=== PATIENT | male | born 1985 | race Caucasian/White ===

== ENCOUNTER 2017-08-10 12:27 | Emergency (ER) | payer MEDICARE, MEDICAID ==
[~2017-08-10] VITALS: Ht 180.3 cm; Wt 90.7 kg
[2017-08-10] MEDS ORDERED: CYCL5TAB PO (12:49)
[2017-08-10] MEDS ORDERED: NAPR500T PO (12:49)
--- NOTE | 2017-08-10 12:50 | ED General ---
General Chief Complaint: General Problems/Pain Stated Complaint: RIGHT SHOULDER/LOWER BACK/LEFT ARM PAIN Nursing Triage Note: patient reports R shoulder pain for months, patient reports having surgery on rotator cuff in [place] but denies contacting surgeon regarding pain. patient also reports he has been out of his pain medication for a month Nursing Sepsis Screen: No Definite Risk Source of Information: Patient Exam Limitations: No Limitations History of Present Illness Time Seen by Provider: 12:47 Initial Comments To ER with right shoulder pain for the past week. He had rotator cuff repair to his right shoulder several months ago in [place]. He has not contacted his surgeon to request additional pain medication. He has low back pain since this morning and he believes he twisted wrong. He has left elbow pain chronic. States he's been out of his pain medication for quite a while and insists that he is in severe pain and can't sleep. Just moved here from [place]. Timing/Duration: 1-2 Days Severity: Moderate Allergies and Home Medications Allergies Coded Allergies: No Known Drug Allergies (Unverified , 08/10/17) Home Medications No Active Prescriptions or Reported Meds Constitutional: see HPI EENTM: see HPI Respiratory: no symptoms reported Cardiovascular: no symptoms reported Genitourinary: no symptoms reported Musculoskeletal: see HPI Skin: no symptoms reported Psychiatric/Neurological: No Symptoms Reported Hematologic/Lymphatic: No Symptoms Reported Past Prejuwt-Grxwus-Owsbha Hx Patient Social History Alcohol Use: Occasionally Uses Recreational Drug Use: No Smoking Status: Current Everyday Smoker Type Used: Cigarettes Recent Foreign Travel: No Contact w/Someone Who Travel: No Recent Infectious Disease Expo: No Physical Abuse: No Sexual Abuse: No Surgeries History of Surgeries: Yes Surgeries: Orthopedic Respiratory History of Respiratory Disorde: No Cardiovascular History of Cardiac Disorders: No Neurological History of Neurological Disord: No Genitourinary History of Genitourinary Disor: No Gastrointestinal History of Gastrointestinal Di: No Musculoskeletal History of Musculoskeletal Dis: Yes Musculoskeletal Disorders: Chronic Back Pain Endocrine History of Endocrine Disorders: No HEENT History of HEENT Disorders: No Cancer History of Cancer: No Psychosocial Suicide Risk Score: 0 Integumentary History of Skin or Integumenta: No Physical Exam Vital Signs Vital Sign - Last 12Hours 08/10/17 12:38 Temp 98.2 Pulse 107 Resp 18 B/P (MAP) 136/88 Pulse Ox 99 Capillary Refill : Less Than 3 Seconds General Appearance: No Apparent Distress, WD/WN Eyes: Bilateral Eye Normal Inspection, Bilateral Eye PERRL HEENT: PERRL/EOMI, TMs Normal Neck: Full Range of Motion, Normal Inspection Respiratory: No Accessory Muscle Use, No Respiratory Distress Gastrointestinal: Normal Bowel Sounds, Non Tender, Soft Extremity: Normal Capillary Refill, Normal Inspection Neurologic/Psychiatric: Alert, Oriented x3 Skin: Normal Color, Warm/Dry Comments No erythema swelling or ecchymosis to the right shoulder. Back is normal inspection. Left elbow is without erythema swelling or deformity/ecchymosis. Progress/Results/Core Measures Results/Orders Vital Signs/I&O Vital Sign - Last 12Hours 08/10/17 12:38 Temp 98.2 Pulse 107 Resp 18 B/P (MAP) 136/88 Pulse Ox 99 Blood Pressure Mean: 104 Departure Impression Impression: Primary Impression: Chronic pain Disposition: 01 HOME, SELF-CARE Condition: Stable Departure-Patient Inst. Decision time for Depature: 12:48 Referrals: NO,LOCAL PHYSICIAN (PCP/Family) Primary Care Physician Patient Instructions: Chronic Pain (DC) Add. Discharge Instructions: Medication as directed 2. Return to ER for any concerns All discharge instructions reviewed with patient and/or family. Voiced understanding. Scripts Naproxen (Naprosyn) 500 Mg Tablet 500 MG PO BID Y for PAIN-MODERATE TO SEVERE, #30 TAB Prov: WILFRED DIGGS PROFESSOR OF PUBLIC ADMINISTRATION 08/10/17 Cyclobenzaprine HCl (Cyclobenzaprine HCl) 5 Mg Tablet 5 MG PO TID Y for PAIN-MODERATE TO SEVERE, #21 TAB Prov: WILFRED DIGGS APRN 08/10/17 WILFRED DIGGS APRN Aug 10, 2017 12:50
[2017-08-10 12:51] VITALS: BP 136/88
== END 2017-08-10 12:51 | disposition home or self-care (01) ==
LOC: ER 12:32
DX: M25.511 Pain in right shoulder (principal); M54.5 Low back pain; G89.29 Other chronic pain; F17.210 Nicotine dependence, cigarettes, uncomplicated
CPT/HCPCS: 99281

== ENCOUNTER 2018-05-09 00:44 | Emergency (ER) | payer MEDICARE, MEDICAID ==
[~2018-05-09] VITALS: Ht 180.3 cm; Wt 86.2 kg
[~2018-05-09 00:44] MED LIST: CYCL5TAB PO; NAPR-1071 PO
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
--- OUTSIDE RECORDS SUMMARY | 2018-05-09 00:49 | XMS REPORT ---
Author Author FRANCISCO JAVIER [employer] Organization [facility] Address [address] [place] [address] Care Team Providers Care Brass Molder Helper Name Role Phone SINCERELAURO HUERTASA Unavailable PROBLEMS Type Condition ICD9-CM Code BRG54-CY Code Onset Dates Condition Status SNOMED Code Problem Schizoaffective disorder, unspecified type F25.9 Active 12063410 Problem PTSD (post-traumatic stress disorder) F43.10 Active 90757948 Problem Social anxiety disorder F40.10 Active 21197427 Problem Substance dependence, continuous F19.20 Active 839768359 Problem Hearing loss of right ear, unspecified hearing loss type H91.91 Active 535297378 Problem Erectile dysfunction, unspecified erectile dysfunction type N52.9 Active 704457623 Problem Episode of recurrent major depressive disorder, unspecified depression episode severity F33.9 Active 847702981 Problem Anxiety F41.9 Active 71049843 Problem Chronic pain due to trauma G89.21 Active 052027560 Problem Sciatica, right side M54.31 Active 20726227 ALLERGIES Substance Reaction Event Type Date Status Aspirin nausea Drug Allergy Jul, Active ENCOUNTERS Encounter Location Date Diagnosis [place] [id number] [facility] [address] [id number] [id number] Feb, Chronic pain due to trauma G89.21 [facility] [address] [facility] [id number] [place] [id number] Jan, Hearing loss of right ear, unspecified hearing loss type H91.91 and Chronic pain due to trauma G89.21 [facility] [address] [id number] [place] [address] Jan, Bilateral impacted cerumen H61.23 and Hearing loss of right ear, unspecified hearing loss type H91.91 [facility] [address] [facility] [id number] [address] Jan, [facility] [address] [id number] [place] [id number] Jan, Chronic pain due to trauma G89.21 [facility] [place] [address] [id number] [place] [id number] Jan, Bilateral impacted cerumen H61.23 [facility] [place] [address] [id number] [place] [address] Dec, [facility] [place] [address] [id number] [place] [id number] Dec, Chronic pain due to trauma G89.21 [facility] [address] [id number] [place] [id number] Dec, [facility] [address] [id number] [place] [id number] Nov, Chronic pain due to trauma G89.21 ; Episode of recurrent major depressive disorder, unspecified depression episode severity F33.9 ; Erectile dysfunction, unspecified erectile dysfunction type N52.9 ; Flu-like symptoms R68.89 and Chronic prescription opiate use Z79.891 [facility] [address] [id number] [place] [address] Oct Sciatica, right side M54.31 [facility] [address] [id number] [place] [address] Oct Chronic pain due to trauma G89.21 [facility] [address] [id number] [place] [address] Oct [facility] [address] [id number] [place] [address] Oct Chronic pain due to trauma G89.21 ; Episode of recurrent major depressive disorder, unspecified depression episode severity F33.9 ; Sciatica, right side M54.31 and Muscle spasm M62.838 [facility] [address] [id number], [place] [address] Sep, Rib pain on left side R07.81 [facility] [address] [id number], [place] [address] Sep, Rib pain on left side R07.81 [facility] [address] [facility] [id number] [place] [address] Aug, Rib pain on left side R07.81 [facility] [address] [facility] [id number] [place] [address] Jul, 2017 PTSD (post-traumatic stress disorder) F43.10 [facility] [address] [facility] [id number], [place] [address] Jul, Schizoaffective disorder, unspecified type F25.9 ; Anxiety F41.9 ; Social anxiety disorder F40.10 ; PTSD (post-traumatic stress disorder) F43.10 ; Substance dependence, continuous F19.20 and Alcohol dependence with intoxication with complication F10.229 IMMUNIZATIONS No Known Immunizations SOCIAL HISTORY Never Assessed REASON FOR VISIT intake [place] PLAN OF CARE Activity Details Follow Up 3 Weeks-inperson Reason: VITAL SIGNS Height 71 in 2017-08-18 Weight 198.0 lbs 2017-08-18 Respiratory Rate 28 2017-08-18 BMI 27.61 kg/m2 2017-08-18 MEDICATIONS Medication Instructions Dosage Frequency Start Date End Date Duration Status HydrOXYzine HCl 25 MG Orally three times a day as needed 1 tablet Jul 30 day(s) Active Seroquel 200 MG Orally Once a day 0.5 tablet every night for three nights then take one tablet every night 24h Jul, 30 day(s) Active RESULTS No Results PROCEDURES Procedure Date Ordered Result Body Site [facility] VISIT ESTABLISHED PATIENT Aug 18, 2017 INSTRUCTIONS MEDICATIONS ADMINISTERED No Known Medications MEDICAL [...]
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
--- OUTSIDE RECORDS SUMMARY | 2018-05-09 00:49 | XMS REPORT ---
Author Author NICK BENITO [facility] Address [address] [place] [address] Care Team Providers Care Rubber Engraver Name Role Phone THONG NICK Unavailable PROBLEMS Type Condition ICD9-CM Code LSZ34-FC Code Onset Dates Condition Status SNOMED Code Problem Schizoaffective disorder, unspecified type F25.9 Active 58028433 Problem PTSD (post-traumatic stress disorder) F43.10 Active 39340127 Problem Social anxiety disorder F40.10 Active 88290860 Problem Substance dependence, continuous F19.20 Active 348583644 Problem Hearing loss of right ear, unspecified hearing loss type H91.91 Active 127159495 Problem Erectile dysfunction, unspecified erectile dysfunction type N52.9 Active 499029846 Problem Episode of recurrent major depressive disorder, unspecified depression episode severity F33.9 Active 326875194 Problem Anxiety F41.9 Active 94420971 Problem Chronic pain due to trauma G89.21 Active 432044662 Problem Sciatica, right side M54.31 Active 54178110 ALLERGIES No Information ENCOUNTERS Encounter Location Date Diagnosis [facility] [address] [facility] [id number][place] [id number] Apr, [facility] [address] [facility] [id number], [place] [address] Apr, Chronic pain due to trauma G89.21 [facility] [address] [id number], [place] [address] March, Chronic pain due to trauma G89.[address] [id number] [place] [address] Feb, Chronic pain due to trauma G89.21 [facility] [address] [facility] [id number], [place] [address] Jan, Hearing loss of right ear, unspecified hearing loss type H91.91 and Chronic pain due to trauma G89.21 [facility] [address] [id number], [place] [address] Jan, Bilateral impacted cerumen H61.23 and Hearing loss of right ear, unspecified hearing loss type H91.91 [facility] [address] [id number] [place] [address] Jan, [facility] [address] [id number], [place] [address] Jan, Chronic pain due to trauma G89.21 [facility] [address] [id number], [place] [address] Jan, Bilateral impacted cerumen H61.23 [facility] [address] [id number], [place] [id number] Dec, [facility] [address] [id number], [place] [address] Dec, Chronic pain due to trauma G89.21 [facility] [address] [id number], [place] [address] Dec, [facility] [address] [id number], [place] [address] Nov, Chronic pain due to trauma G89.21 ; Episode of recurrent major depressive disorder, unspecified depression episode severity F33.9 ; Erectile dysfunction, unspecified erectile dysfunction type N52.9 ; Flu-like symptoms R68.89 and Chronic prescription opiate use Z79.891 [facility] [address] [id number] [place] [address] Oct Sciatica, right side M54.31 [facility] [address] [id number] [place] [address] Oct Chronic pain due to trauma G89.21 [facility] [address] [id number] [place] [address] Oct [facility] [address] [id number] [place] [address] Oct Chronic pain due to trauma G89.21 ; Episode of recurrent major depressive disorder, unspecified depression episode severity F33.9 ; Sciatica, right side M54.31 and Muscle spasm M62.838 [facility] [address]00565100[place] [address] Sep, Rib pain on left side R07.81 [facility] [address]00565100[place] [address] Sep, Rib pain on left side R07.81 [facility] [address] [place] [address] Aug, Rib pain on left side R07.81 [facility] [id number] [place] [address] Jul, PTSD (post-traumatic stress disorder) F43.10 [facility] [address] [place] [address] Jul, Schizoaffective disorder, unspecified type F25.9 ; Anxiety F41.9 ; Social anxiety disorder F40.10 ; PTSD (post-traumatic stress disorder) F43.10 ; Substance dependence, continuous F19.20 and Alcohol dependence with intoxication with complication F10.229 IMMUNIZATIONS No Known Immunizations SOCIAL HISTORY Never Assessed REASON FOR VISIT phone call PLAN OF CARE VITAL SIGNS MEDICATIONS Medication Instructions Dosage Frequency Start Date End Date Duration Status OxyCODONE HCl ER 15 mg Orally every 12 hrs 1 tablet 12h Oct, Nov, 30 days Active RESULTS No Results PROCEDURES No Known procedures [...]
--- OUTSIDE RECORDS SUMMARY | 2018-05-09 00:49 | XMS REPORT ---
Author Author NICK BENITO [facility] Address [address] [place] [address] Care Team Providers Care Back Strip Machine Operator Name Role Phone THONG NICK Unavailable PROBLEMS Type Condition ICD9-CM Code OVA63-NG Code Onset Dates Condition Status SNOMED Code Problem Schizoaffective disorder, unspecified type F25.9 Active 93731485 Problem PTSD (post-traumatic stress disorder) F43.10 Active 21924869 Problem Social anxiety disorder F40.10 Active 58612123 Problem Substance dependence, continuous F19.20 Active 879303376 Problem Hearing loss of right ear, unspecified hearing loss type H91.91 Active 256166283 Problem Erectile dysfunction, unspecified erectile dysfunction type N52.9 Active 113893446 Problem Episode of recurrent major depressive disorder, unspecified depression episode severity F33.9 Active 773174678 Problem Anxiety F41.9 Active 85769169 Problem Chronic pain due to trauma G89.21 Active 062165191 Problem Sciatica, right side M54.31 Active 51190518 ALLERGIES No Information ENCOUNTERS Encounter Location Date Diagnosis [address] [id number], [place] [address] Apr, Chronic pain due to trauma G89.21 [address] [facility] [id number], [place] [address] March, Chronic pain due to trauma G89.[address] [id number], [place] [address] Feb, Chronic pain due to trauma G89.21 [facility] [address] [id number], [place] [address] Jan, Hearing loss of right ear, unspecified hearing loss type H91.91 and Chronic pain due to trauma G89.[address] [id number], [place] [address] Jan, Bilateral impacted cerumen H61.23 and Hearing loss of right ear, unspecified hearing loss type H91.91 [facility] [address] [facility] [id number] [address] Jan, [facility] [address] [id number], [place] [address] Jan, Chronic pain due to trauma G89.21 [facility] [address] [id number], [place] [address] Jan, Bilateral impacted cerumen H61.23 [facility] [address] [id number], [place] [address] Dec, [facility] [id number], [place] [address] Dec, Chronic pain due to trauma G89.21 [facility] [address] [id number], [place] [address] Dec, [facility] [address] [id number], [place] [address] Nov, Chronic pain due to trauma G89.21 ; Episode of recurrent major depressive disorder, unspecified depression episode severity F33.9 ; Erectile dysfunction, unspecified erectile dysfunction type N52.9 ; Flu-like symptoms R68.89 and Chronic prescription opiate use Z79.891 [facility] [address] [id number] [place] [address] Oct Sciatica, right side M54.31 [facility] [address] [id number] [place] [address] Oct Chronic pain due to trauma G89.21 [facility] [address] [id number] [place] [address] Oct [facility] [address] [id number] [place] [address] Oct Chronic pain due to trauma G89.21 ; Episode of recurrent major depressive disorder, unspecified depression episode severity F33.9 ; Sciatica, right side M54.31 and Muscle spasm M62.838 [facility] [address] [id number] [address] Sep, Rib pain on left side R07.81 [facility] [address]00565100[place], [place] [address] Sep, Rib pain on left side R07.81 [facility] [address]00565100[place], [place] [address] Aug, Rib pain on left side R07.81 [facility] [address]00565100[place], [place] [address] Jul, PTSD (post-traumatic stress disorder) F43.10 [facility] [address]00565100[place], [place] [address] Jul, Schizoaffective disorder, unspecified type F25.9 ; Anxiety F41.9 ; Social anxiety disorder F40.10 ; PTSD (post-traumatic stress disorder) F43.10 ; Substance dependence, continuous F19.20 and Alcohol dependence with intoxication with complication F10.229 IMMUNIZATIONS No Known Immunizations SOCIAL HISTORY Never Assessed REASON FOR VISIT phone call PLAN OF CARE VITAL SIGNS MEDICATIONS Medication Instructions Dosage Frequency Start Date End Date Duration Status Cyclobenzaprine HCl 10 mg Orally Three times a day 1 tablet as needed 8h Oct, Dec, 30 days Active RESULTS No Results PROCEDURES [...]
--- OUTSIDE RECORDS SUMMARY | 2018-05-09 00:50 | XMS REPORT ---
Author Author GAYLA MEJIA Organization [facility] Address [address] [place] [address] Care Team Providers Care Balling Head Tender Name Role Phone GAYLA MEJIA Unavailable PROBLEMS Type Condition ICD9-CM Code XDO50-MP Code Onset Dates Condition Status SNOMED Code Problem Schizoaffective disorder, unspecified type F25.9 Active 28864814 Problem PTSD (post-traumatic stress disorder) F43.10 Active 63459605 Problem Social anxiety disorder F40.10 Active 63511540 Problem Substance dependence, continuous F19.20 Active 252645728 Problem Hearing loss of right ear, unspecified hearing loss type H91.91 Active 136530230 Problem Erectile dysfunction, unspecified erectile dysfunction type N52.9 Active 951190666 Problem Episode of recurrent major depressive disorder, unspecified depression episode severity F33.9 Active 368136591 Problem Anxiety F41.9 Active 34482066 Problem Chronic pain due to trauma G89.21 Active 354549226 Problem Sciatica, right side M54.31 Active 42300999 ALLERGIES Substance Reaction Event Type Date Status Aspirin nausea Drug Allergy Aug, Active ENCOUNTERS Encounter Location Date Diagnosis [facility] [address] [facility] [id number], [place] [address] March, Chronic pain due to trauma G89.[address] [id number], [place] [address] Feb, Chronic pain due to trauma G89.21 [facility] [address] [facility] [id number], [place] [address] Jan, Hearing loss of right ear, unspecified hearing loss type H91.91 and Chronic pain due to trauma G89.21 [facility] [address] [facility] [id number], [place] [address] Jan, Bilateral impacted cerumen H61.23 and Hearing loss of right ear, unspecified hearing loss type H91.91 [facility] [address] [facility] [id number] [place] [address] Jan, [facility] [address] [id number], [place] [id number] Jan, Chronic pain due to trauma G89.21 [facility] [address] [id number], [place] [address] Jan, Bilateral impacted cerumen H61.23 [facility] [address] [id number], [place] [address] Dec, [facility] [address] [id number], [place] [address] Dec, Chronic pain due to trauma G89.21 [facility] [id number], [place] [address] Dec, [facility] [address] [id number], [place] [address] Nov, Chronic pain due to trauma G89.21 ; Episode of recurrent major depressive disorder, unspecified depression episode severity F33.9 ; Erectile dysfunction, unspecified erectile dysfunction type N52.9 ; Flu-like symptoms R68.89 and Chronic prescription opiate use Z79.891 [facility] [address] [id number] [place] [address] Oct Sciatica, right side M54.31 [facility] [address] [id number] [place] [address] Oct Chronic pain due to trauma G89.21 [facility] [address] [id number] [place] [address] Oct [facility] [address] [id number] [place] [address] Oct Chronic pain due to trauma G89.21 ; Episode of recurrent major depressive disorder, unspecified depression episode severity F33.9 ; Sciatica, right side M54.31 and Muscle spasm M62.838 [facility] [address] [facility] [id number] [place] [address] Sep, Rib pain on left side R07.81 [facility] [address] [facility] [id number] [place] [address] Sep, Rib pain on left side R07.81 [facility] [address] [facility] [id number] [place] [address] Aug, Rib pain on left side R07.81 [facility] [address] [facility] [id number] [place] [address] Jul, PTSD (post-traumatic stress disorder) F43.10 [facility] [address] [facility] [id number] [place] [address] Jul, Schizoaffective disorder, unspecified type F25.9 ; Anxiety F41.9 ; Social anxiety disorder F40.10 ; PTSD (post-traumatic stress disorder) F43.10 ; Substance dependence, continuous F19.20 and Alcohol dependence with intoxication with complication F10.229 IMMUNIZATIONS Vaccine Route Administration Date Status TORADOL (IM) 60 MG/2ML (UP TO 15 MG) IM Intramuscular Sep 20, 2017 Administered SOCIAL HISTORY Never Assessed REASON FOR VISIT Left sided rib pain, worried that he may have a broken rib or pneumonia. States he doesn't recall an injury but he got drunk a few nights ago. LEATHA Farias. PLAN OF CARE VITAL SIGNS Height 71 in 2017-09-20 Weight 195 lbs 2017-09-20 Temperature 98.2 degrees Fahrenheit 2017-09-20 Heart Rate 88 bpm 2017-09-20 Respiratory Rate 18 2017-09-20 BMI 27.19 kg/m2 2017-09-20 Blood pressure systolic 128 mmHg 2017-09-20 Blood pressure diastolic 72 mmHg 2017-09-20 MEDICATIONS Medication Instructions Dosage Frequency Start Date End Date Duration Status Zithromax Z-Moiz 250 MG Orally Once a day 2 tablets on the first day, then 1 tablet daily for 4 days 24h Aug, Sep, 5 day(s) Active HydrOXYzine HCl 25 MG Orally three times a day as needed 1 tablet Jul 30 day(s) Active Seroquel 200 mg Orally Once a day 0.5 tablet every night for three nights then take one tablet every night 24h Jul, 30 day(s) Active Percocet 7.5-325 MG Orally every 6 hrs 1 tablet as needed 6h Aug, Active PredniSONE 20 mg Orally Once a day 2 tablets 24h Aug, Sep, 05 days Active RESULTS Name Result Date Reference Range Xray : Chest (IN HOUSE) 2017-09-20 PROCEDURES Procedure Date Ordered Result Body Site [facility] VISIT ESTABLISHED PATIENT Sep 20, 2017 TORADOL (IM) 60 MG/2ML (UP TO 15 MG) Sep 20, 2017 CHEST X-RAY Sep 20, 2017 THER/PROPH/DIAG INJ, SC/IM Sep 20, 2017 INSTRUCTIONS MEDICATIONS ADMINISTERED No Known Medications [...]
[2018-05-09] MEDS ORDERED: LORazepam INJ 2 MG/ML (ATIVAN) VIAL IM ONE (01:15)
[2018-05-09] MEDS ORDERED: KETOROLAC 30 MG/ML VIAL IM ONE (01:15)
--- NOTE | 2018-05-09 01:16 | ED Chest Pain ---
General Chief Complaint: Chest Wall/Rib Pain Stated Complaint: FALL PLAYING FOOTBALL INJ RIBS Nursing Triage Note: PATIENT REPORTS PLAYING FOOTBALL IN THE YARD WITH FRIENDS AND ONE APPROX 300 POUND MAN FELL ON PATIENT. PATIENT C/O OF INCREASING PAIN IN THE RIGHT SIDE. Nursing Sepsis Screen: No Definite Risk Source: patient Exam Limitations: no limitations History of Present Illness Date Seen by Provider: May 09, 2018 Time Seen by Provider: 01:08 Initial Comments Patient resents to the ER by private conveyance with a chief complaint that at about 1800 yesterday he was playing football some friends and he got tackled by a rather large gentleman above 300 pounds and he started having quite a bit of right sided chest pain. He is not having numbness of a pain in his shoulder but it is worse with any movement. He's not having any difficulty breathing and is not taking anything for the pain yet. He did not come in sooner because he thought that he wouldn't need any help he just went and laid down. His pain is not getting better so he presented to the ER. He does not have any significant medical history or previous history of trauma to this side. He is not using any medicines. He does not have allergies to any medicines. He is not having any nausea vomiting or loss of consciousness. He's had one shot of whiskey and 1 tall boy at the time of the injury. Allergies and Home Medications Allergies Coded Allergies: No Known Drug Allergies (Unverified , 08/10/17) Home Medications Cyclobenzaprine HCl 5 Mg Tablet, 5 MG PO TID PRN for PAIN-MODERATE TO SEVERE Prescribed by: WILFRED DIGGS on 08/10/17 1249 Naproxen 500 Mg Tablet, 500 MG PO BID PRN for PAIN-MODERATE TO SEVERE Prescribed by: WILFRED DIGGS on 08/10/17 1249 Patient Home Medication List Home Medication List Reviewed: Yes Review of Systems Constitutional: No chills, No diaphoresis EENTM: No Blurred Vision, No Double Vision Respiratory: Denies Cough, Denies Shortness of Air Cardiovascular: See HPI, Chest Pain; Denies Lightheadedness, Denies Palpitations, Denies Syncope Gastrointestinal: Denies Constipated, Denies Diarrhea, Denies Nausea, Denies Rectal Bleeding, Denies Vomiting Genitourinary: Denies Burning, Denies Discharge Musculoskeletal: No back pain, No joint pain Skin: No pruritus, No rash Past Dvcmutk-Qcuige-Ttikri Hx Patient Social History Alcohol Use: Regular Use Alcohol Beverage of Choice: Beer, Whiskey Recreational Drug Use: No Type Used: Cigarettes Recent Foreign Travel: No Contact w/Someone Who Travel: No Recent Infectious Disease Expo: No Past Medical History Surgeries: Yes Orthopedic Respiratory: No Cardiac: No Neurological: No Genitourinary: No Gastrointestinal: No Musculoskeletal: Yes Chronic Back Pain Endocrine: No HEENT: No Cancer: No Integumentary: No Physical Exam Vital Signs Vital Signs - First Documented 05/09/18 01:01 Pulse 117 Resp 28 B/P (MAP) 115/78 (90) Pulse Ox 100 Capillary Refill : Less Than 3 Seconds General Appearance: WD/WN, Mild Distress HEENT: PERRL/EOMI, TMs Normal, Normal ENT Inspection, Pharynx Normal, Other ( no Leija sign or raccoon eyes.) Neck: Full Range of Motion, Normal Inspection, Non Tender, Supple Respiratory: Lungs Clear, Normal Breath Sounds, No Accessory Muscle Use, No Respiratory Distress, Other (vocalizations of pain and tenderness whenever pressing on his right anterior chest wall.) Cardiovascular: Regular Rate, Rhythm, No Edema, No JVD, Normal Peripheral Pulses Gastrointestinal: Normal Bowel Sounds, Non Tender, Soft Neurologic/Psychiatric: Alert, Oriented x3 Skin: Normal Color, Warm/Dry Progress/Results/Core Measures Results/Orders My Orders Orders - BRIAN BURGESS Ketorolac Injection (Toradol Injection) (05/09/18 01:15) Lorazepam Injection (Ativan Injection) (05/09/18 01:15) Ribs, Right 2-3 Views (05/09/18 01:14) Shoulder, Right, 3 Views (05/09/18 01:14) Ekg Tracing (05/09/18 01:41) Fentanyl Injection (Sublimaze Injection (05/09/18 02:00) Fentanyl Injection (Sublimaze Injection (05/09/18 02:00) Medications Given in ED Current Medications Medications Dose Ordered Sig/Shaheed Route Start Time Stop Time Status Last Admin Dose Admin Ketorolac Tromethamine 15 mg ONCE ONCE IM 05/09/18 01:15 05/09/18 01:16 DC 05/09/18 01:29 15 MG Lorazepam 0.5 mg ONCE ONCE IM 05/09/18 01:15 05/09/18 01:16 DC 05/09/18 01:29 0.5 MG Vital Signs/I&O 05/09/18 01:01 Pulse 117 Resp 28 B/P (MAP) 115/78 (90) Pulse Ox 100 Blood Pressure Mean: 90 Progress Progress Note : Time: 01:51 Progress Note This pain seems to be centered around his chest wall and the upper right quadrant and he could have some fractured ribs. His clavicle is nondeformed and nontender and he has full range of motion in his shoulder although it makes his ribs hurt worse and there could be a distracting injuries we'll get an x-ray of that as well as his right ribs. Gotten EKG just to make sure there wasn't any contusion of the harder irritability seen and EKGs pretty unremarkable. We have given him some ketorolac and even a small dose of Ativan to help with his anxiety and he still having quite a bit of vocalizations of pain indicating that he would like something more so were going to give him 50 of fentanyl IV. Initial ECG Impression Date: May 09, 2018 Initial ECG Impression Time: 01:44 Initial ECG Rate: 90 Initial ECG Rhythm: Normal Sinus Initial ECG Intervals: Normal Initial ECG Impression: Normal Initial ECG Comparisson: No Previous ECG Available Comment No ST elevation or depression. Diagnostic Imaging Diagonstic Imaging: Xray Plain Films/CT/US/NM/MRI: chest (ribs right) Comments No acute osseous abnormalities noted. Good lung markings throughout the pulmonary rodgers. No acute cardiopulmonary process. Reviewed: Reviewed by Me Diagonstic Imaging: Xray Plain Films/CT/US/NM/MRI: other (r shoulder) Comments No dislocation or fracture noted. Reviewed: Reviewed by Me Departure Impression Primary Impression: Chest injury Qualified Codes: S29.9XXA - Unspecified injury of thorax, initial encounter Disposition: 01 HOME, SELF-CARE Condition: Improved Departure-Patient Inst. Decision time for Depature: 02:14 Referrals: NO,LOCAL PHYSICIAN (PCP/Family) Primary Care Physician Patient Instructions: Bruised Rib (DC) Add. Discharge Instructions: Apply an ice pack for 20 minutes every 4 hours for the first 3 days to your right chest wall. Use Tylenol 1000 mg every 8 hours along with ibuprofen 800 mg every 8 hours. Stay active and if your pain is not improving in the first week follow-up with your primary care provider. All discharge instructions reviewed with patient and/or family. Voiced understanding. BRIAN BURGESS May 09, 2018 01:16
[2018-05-09] MEDS ORDERED: fentaNYL INJECTION 100 MCG/2 ML AMP IM ONE (02:00)
[2018-05-09] MEDS ORDERED: fentaNYL INJECTION 100 MCG/2 ML AMP IVP ONE (02:00)
[2018-05-09 02:40] VITALS: BP 124/70
--- NOTE | 2018-05-09 06:24 | Diagnostic Imaging Report ---
EXAMINATION: Right shoulder, 3 views, 4 images. COMPARISON: None. INDICATION: 32-year-old male, fall. Right shoulder and rib pain. FINDINGS: The acromioclavicular joint is normally aligned. There are no acromioclavicular degenerative changes. The humeral head is normally positioned relative to the glenoid. The glenohumeral joint is unremarkable in appearance. There is no identified acute fracture. There is cervical spinal hardware noted. IMPRESSION: 1. Unremarkable right shoulder radiographs. Dictated by: Dictated on workstation # [id number]
--- NOTE | 2018-05-09 06:27 | Diagnostic Imaging Report ---
EXAMINATION: Right ribs, 3 views. COMPARISON: None. INDICATION: 32-year-old male, fall. Right rib pain. FINDINGS: There is cervical spinal hardware noted. There is a mild contour deformity of the right sixth rib anteriorly which is questionable for a essentially nondisplaced rib fracture. No otherwise identified potential rib fracture. Recommend correlation for focal pain at this exact site. There is no identified pneumothorax or large pleural effusion. There is no identified focal lung consolidation. IMPRESSION: 1. Very mild contour deformity of the right sixth rib anteriorly which is questionable for nondisplaced rib fracture. Recommend correlation for focal pain at this exact site. Dictated by: Dictated on workstation # [id number]
== END 2018-05-09 02:39 | disposition home or self-care (01) ==
LOC: EDUNIT# 00:44 → ER 00:46
DX: S29.9XXA Unspecified injury of thorax, initial encounter (principal); W51.XXXA Accidental striking against or bumped into by another person, initial encounter; Y93.61 Activity, american tackle football
CPT/HCPCS: 71100; 73030; 93005; 96372